=== PATIENT | male | born 1995 | race Caucasian/White ===

== ENCOUNTER 2016-12-31 19:36 | Emergency (ER) | payer SELFPAY ==
--- NOTE | 2016-12-31 21:05 | ED ---
Head Injury - HPI Summary HPI Summary: 21M presents with syncopal episode that resultant in head injury. He cut his left thumb on a knife. He then saw the blood and pass out and struck his head on the ground. He does not remember anything about the fall. He states he has an a syncopal episode a couple months ago when he was sick. He denies any chest pain or SOB. He admits to a headache that is 7/10 and nausea. He denies any photophobia, double vision. He denies any vomiting. He is not on any blood thinners. - History Of Current Complaint Chief Complaint: EDHeadInjury Stated Complaint: FALL/HEAD INJURY Time Seen by Provider: 12/31/16 20:13 Pain Intensity: 7 - Allergies/Home Medications Allergies/Adverse Reactions: Allergies Allergy/AdvReac Type Severity Reaction Status Date / Time No Known Allergies Allergy Verified 12/31/16 20:09 PMH/Surg Hx/FS Hx/Imm Hx Endocrine/Hematology History: Denies: Hx Anticoagulant Therapy Cardiovascular History: Denies: Hx Hypertension Neurological History: Reports: Other Neuro Impairments/Disorders - concussion Infectious Disease History: No Infectious Disease History: Denies: Traveled Outside the [place] in Last 30 Days - Family History Known Family History: Negative: Cardiac Disease - Social History Alcohol Use: None Substance Use Type: Reports: None Smoking Status (MU): Never Smoked Tobacco Review of Systems Negative: Fever Negative: Chest Pain Negative: Shortness Of Breath Positive: Nausea Positive: Other - laceration to left thumb Positive: Headache All Other Systems Reviewed And Are Negative: Yes Physical Exam Triage Information Reviewed: Yes Vital Signs On Initial Exam: Initial Vitals Temp Pulse Resp BP Pulse Ox 98.9 F 83 16 134/66 100 12/31/16 20:00 12/31/16 20:00 12/31/16 20:00 12/31/16 20:00 12/31/16 20:00 Vital Signs Reviewed: Yes Appearance: Positive: Well-Appearing Skin: Positive: Warm, Dry Head/Face: Positive: Normal Head/Face Inspection, Other - no step off, racoon eyes, gonsalez sign Eyes: Positive: Normal, Conjunctiva Clear ENT: Positive: Normal ENT inspection, Pharynx normal, TMs normal Respiratory/Lung Sounds: Positive: Clear to Auscultation, Breath Sounds Present Cardiovascular: Positive: Normal, RRR Musculoskeletal: Positive: Other - left thumb 1/2 cm laceration superficial, capillary refill <2secs Neurological: Positive: Sensory/Motor Intact, Alert, Oriented to Person Place, Time, CN Intact II-III - Latasha Coma Scale Best Eye Response: 4 - Spontaneous Best Motor Response: 6 - Obeys Commands Best Verbal Response: 5 - Oriented Coma Scale Total: 15 Procedures - Laceration/Wound Repair 1 Location: Other - left thumb Description: Linear Length, Depth and Shape: 1/2cm superficial Irrigated w/ Saline (ccs): 20 Closure: Skin Adhesive Diagnostics - Vital Signs Vital Signs Temp Pulse Resp BP Pulse Ox 12/31/16 20:00 98.9 F 83 16 134/66 100 - Laboratory Result Diagrams: 12/31/16 20:57 12/31/16 20:57 Lab Statement: Any lab studies that have been ordered have been reviewed, and results considered in the medical decision making process. - CT head CT Interpretation: No Acute Changes CT Interpretation Completed By: Radiologist - EKG No standard instances Cardiac Rate: NL EKG Rhythm: Sinus Rhythm Head Injury Course/Dx Course Of Treatment: 21M presents with syncopal episode today that result in head injury as he feel onto [facility] floor. the episode occurred as he cut his left thumb and created a 1/2 cm laceration and he saw the blood and passed out. He denies any nausea or vomiting. He was sent from [facility] for imaging. normal neuro exam. CT head normal. EKG normal. labs normal. placed glue on laceration. patient understands and agrees with plan - Diagnoses Differential Diagnosis/HQI/PQRI: Concussion With LOC, Concussion Without LOC, Intracranial Bleed, Laceration Provider Diagnoses: Syncopal episodes, Head injury, Thumb laceration Discharge - Discharge Plan Condition: Good Disposition: HOME Patient Education Materials: Head Injury (ED) Referrals: Non Staff,Doctor [Primary Care Provider] - Additional Instructions: Take Tylenol or ibuprofen for headache every 6 hours Glue on finger will fall off on own, avoid soaking the area Follow up with IC if no improvement within 5 days Return to ED if develop vomiting, severe headache, change in behavior, or any new or worsening symptoms
--- NOTE | 2016-12-31 21:07 | RAD ---
INDICATION: Head trauma after "passing out" COMPARISON: None. TECHNIQUE: Contiguous axial sections of the brain were obtained from the skull base to the vertex without contrast. FINDINGS: The ventricles, cisterns and sulci are within normal limits. The simmons-white matter differentiation is adequately maintained and there is no sulcal effacement. No significant focal abnormality or mass effect is present. There is no evidence for intracranial hemorrhage. No significant focal osseous abnormality is present. The visualized portion of the paranasal sinuses and mastoid air cells appear clear. IMPRESSION: Normal CT of the brain.
[2016-12-31 21:11] LABS: Hematocrit 46 % (42-52); Hemoglobin 15.7 g/dl (14.0-18.0); Mean Corpuscular HGB Conc 34 g/dl (31-36); Mean Corpuscular Hemoglobin 30 pg (27-31); Mean Corpuscular Volume 90 fL (80-94); Mean Platelet Volume 9 um3 (7.4-10.4); Red Blood Count 5.17 10^6/ul (4.0-5.4); Red Cell Distribution Width 13 % (10.5-15); White Blood Count 9.2 10^3/ul (3.5-10.8)
[2016-12-31 21:26] LABS: Albumin 4.8 g/dL (3.2-5.2); Calcium 10.3 mg/dL (8.6-10.3); EGFR African American 108.6 (>60); EGFR Non-African American 84.5 (>60); Globulin 2.7 g/dL (2-4); Potassium 4.2 mmol/L (3.5-5.0); Total Bilirubin 0.3 mg/dL (0.2-1.0); Total Protein 7.5 g/dL (6.4-8.9)
[2016-12-31 21:53] VITALS: BP 105/49
== END 2016-12-31 21:52 | disposition home or self-care (01) ==
LOC: ED 19:36
DX: S61.012A Laceration without foreign body of left thumb without damage to nail, initial encounter (principal); S09.90XA Unspecified injury of head, initial encounter; R55 Syncope and collapse; W19.XXXA Unspecified fall, initial encounter; Y93.9 Activity, unspecified; Y92.9 Unspecified place or not applicable; Y99.9 Unspecified external cause status; W26.0XXA Contact with knife, initial encounter
CPT/HCPCS: 36415; 70450; 80053; 85025; 93005; 99282